=== PATIENT | male | born 1970 | race African-American/Black ===

== ENCOUNTER 2025-09-18 13:59 | Outpatient (OUT) | payer BC, SELFPAY ==
--- OUTSIDE RECORDS SUMMARY | 2025-07-08 11:00 | XMS_ITS ---
Author Organization [facility] vices Address [address] [place] [phone] Care Team Providers Care Career Development Facilitator Name Role Phone Polo Winters Unavailable [phone] REASON FOR VISIT Wellness Social History Sex Assigned At : Social History Observation Description Sex Assigned At Male Encounters Encounter Location Date Provider Diagnosis Main [address] [place] [address] [phone] 07/08/2025 Polo Winters Plan Of Treatment Next Appt Details Provider Name:Eliezer bernal, 09/23/2025 04:45:00 PM, [address] [place] [address], [phone], Provider Name:Polo Winters, 10/15/2025 12:45:00 PM, [address] [place] [address], [phone], Progress Notes * Ulysses LEWISDOB:1970 ( 54 yo M)Acc No.[id number]:07/08/2025 Patient:?Ulysses Lewis :?Polo JacobodDOB:1970???Age:54 Y???Sex:Male Date:07/08/2025Phone:[phone]:[address] [place] [id number] Subjective: * Chief Complaints: * W ellness Billing Information: * Procedure Codes: * Electronic signature of NÉSTOR Ramos on 09/18/2025 at 02:03 PM ESTSign off status: Pending * Provider: Lilliana Winters Date: 0 07/08/2025 Generated for Printing/Faxing/eTransmitting on:?09/18/2025 02:03 PM EST
--- OUTSIDE RECORDS SUMMARY | 2025-09-04 16:00 | XMS_ITS | Encounter Summary ---
Author Organization [facility] Address [facility] [id number] [address] [place] [address] Care Team Providers Care Tellers Supervisor Name Role Phone Unavailable Primary Care Provider Unavailabl e Reason for Referral * Consultation (Routine) - Pending ReviewSpecialtyDiagnoses / ProceduresReferred By ContactReferred To ContactWound Care Diagnoses Cellulitis, unspecified cellulitis site Talya Valencia APRN-CNP [address] [place] [phone] Phone: tel: fax: [facility] [address] [place] [address] Phone: tel: fax: Referral IDStatusReasonStart DateExpiration DateVisits RequestedVisits [id number] Review Specialty Services Required Reason for Visit * ReasonCommentsToe Pain Encounter Details DateTypeDepartmentCare Team (Latest Contact Info)Cgywllkmgfe26/19/2025 4:00 PM EST - 09/04/2025 5:15 PM ESTEmergency [facility] [address] [place] [address] Cellulitis, unspecified cellulitis site (Primary Dx) Discharge Disposition: Home Social History Tobacco UseTypesPacks/DayYears UsedDateSmoking Tobacco: NeverSmokeless Tobacco: NeverAlcohol UseStandard Drinks/WeekCommentsNo0 (1 standard drink = 0.6 oz pure alcohol)[facility] UtilitiesAnswerDate RecordedIn the past 12 months has the electric, gas, oil, or water company threatened to shut off services in your home?No 11/20/2024Overall Financial Resource Strain (CARDIA)AnswerDate RecordedHow hard is it for you to pay for the very basics like food, housing, medical care, and heating?Not hard at all05/28/2024HQ-2AnswerDate RecordedTotal Foaca553 PRAPARE - TransportationAnswerDate RecordedIn the past 12 months, has lack of transportation kept you from medical appointments or from getting medications? Yes11/20/2024In the past 12 months, has lack of transportation kept you from meetings, work, or from getting things needed for daily living?Yes11/20/2024 Housing InstabilityAnswerDate RecordedAre you worried or concerned that in the next two months you may not have stable housing that you own, rent or stay in as a part of a household?No11/20/2024hildcareAnswerDate RecordedChildcareUnknown 03/28/2019EmploymentAnswerDate MykmzmurAuuxclztwjGpkjdsc36/12/2019Hunger ScreeningAnswerDate RecordedWithin the past 12 months we worried whether our food would run out before we got money to buy more.Never True09/04/2025Within the past 12 months the food we bought just didn't last and we didn't have money to get more.Never True09/04/2025Purpose - LifeAnswerDate RecordedPurpose and direction in vrfsVpbsdjx54/11/2021ex and Gender InformationValueDate Recorded Sex Assigned at FqixbRicq89/11/2024 10:05 AM ESTLegal LofPauy9705/22/2015 11:27 AM EDTGender NkrkilcjPoyi12/11/2024 10:05 AM ESTSexual OrientationStraight 10/27/2023 10:05 AM ESTdocumented as of this encounter Last Filed Vital Signs Vital SignReadingTime TakenCommentsBlood Mdharqco964/9409/04/2025 5:04 PM EST Egocg610109/04/2025 5:04 PM OIHRfpajljjowd46.4 ??C (97.5 ??F)09/04/2025 4:10 PM ESTRespiratory Wqji137411/04/2024 5:04 PM ESTOxygen Webgcopsbl67%09/04/2025 5:04 PM ESTInhaled Oxygen Concentration--Xaasxw473.1 kg (311 lb)09/04/2025 4:07 PM GNXCdrbqh819.3 cm (5' 11 )09/04/2025 4:07 PM ESTBody Mass Index43.38111/04/2024 4:07 PM ESTdocumented in this encounter Discharge Instructions * Discharge Instructions* JADEN Willams - 09/04/2025 5:02 PM EST Thank you for choosing us for your medical care. We know you have a choice, and we appreciate you choosing us for your medical concerns! You may receive a survey from the hospital about your visit. We very much appreciate your comments and concerns. Please read all medication insert instructions and side effects when dispensed by the pharmacy. Every medication has side effects, and you may experience any of them. Please call the emergency room with any questions or concerns you have. Please call your doctor for outpatient follow up and recommendations. The emergency room cannot replace ongoing care, and it is important for your personal physician to evaluate you and monitor your health. Return to the ER for increased pain, fever > 101.5, vomiting twice, or any concern you deem emergent. Talya Valencia CNP * Attachments The following attachments cannot be sent through Care Everywhere. * Cellulitis (skin infection) in adults ??? ED discharge instructions (Marshallese) documented in this encounter Medications at Time of Discharge MedicationSigDispense QuantityRefillsLast FilledStart DateEnd Date acetaminophen (TYLENOL) 325 mg tablet Take 2 tablets (650 mg total) by mouth every 6 (six) hours as needed for fever, headaches or pain. 30 tablet 05/31/2023 dicyclomine (BENTYL) 20 mg tablet Take 1 tablet (20 mg total) by mouth in the morning and 1 tablet (20 mg total) before bedtime. 20 tablet 07/01/2025 empagliflozin (JARDIANCE) 10 mg tablet tablet Take 1 tablet (10 mg total) by mouth in the morning. insulin degludec (TRESIBA FLEXTOUCH U-100 SUBQ) Inject 30 Units under the skin nightly. insulin lispro (HumaLOG) 100 unit/mL insulin pen Inject 10 Units under the skin 3 (three) times a day with meals. 1 Box meclizine (ANTIVERT) 25 mg tablet Take 1 tablet (25 mg total) by mouth 3 (three) times a day as needed for dizziness. 30 tablet 11/22/2024 meclizine (ANTIVERT) 25 mg tablet Take 1 tablet (25 mg total) by mouth 3 (three) times a day as needed for dizziness. 20 tablet 08/09/2025 metFORMIN (GLUCOPHAGE) 1000 mg tablet Take 1 tablet (1,000 mg total) by mouth in the morning and 1 tablet (1,000 mg total) in the evening. Take with meals. ondansetron ODT (ZOFRAN ODT) 4 mg disintegrating tablet Dissolve 1 tablet (4 mg total) on tongue every 8 (eight) hours as needed for nausea for up to 10 doses. 10 tablet 07/01/2025 ondansetron ODT (ZOFRAN ODT) 4 mg disintegrating tablet Dissolve 1 tablet (4 mg total) on tongue every 8 (eight) hours as needed for nausea or vomiting. 20 tablet 08/09/2025 semaglutide (OZEMPIC) 0.25 mg or 0.5 mg(2 mg/1.5 mL) pen injector Inject 0.5 mg under the skin every 7 days. Pt takes on Mondays tirzepatide (MOUNJARO) 2.5 mg/0.5 mL pen injector Inject 2.5 mg under the skin every 7 days. CEPHalexin (KEFLEX) 500 mg capsule Take 1 capsule (500 mg total) by mouth 3 (three) times a day for 10 days. 30 capsule 511/documented as of this encounter ED Notes * JADEN Willams - 09/04/2025 4:17 PM EST Images from the original note were not included. [facility] Pt Name: Ulysses Lewis Birthdate: 1970 Chief Complaint: Chief Complaint Patient presents with Toe Pain History of Present Illness: Ulysses Lewis is a 54-year-old male that presents to ED with complaint of left 2nd toe pain. Patient states he woke up with his left 2nd toe being swollen, painful and with a blister on it. Patient states he is type 2 diabetic. Does not follow with Podiatry. States he has never had a wound to his feet before. History provided by: Patient automation specialist used: No Past Medical History: Past Medical History: Diagnosis Date Chest pain Diabetes mellitus type 2, controlled ([facility]) DM (diabetes mellitus) ([facility]) Hyperlipidemia Obesity Prostate enlargement Sleep apnea Past Surgical History: Past Surgical History: Procedure Laterality Date CARDIAC CATHETERIZATION 2017 heart cath CHOLECYSTECTOMY COLONOSCOPY N/A 08/23/2019 Performed by Sergey Maxwell MD at [facility] Family History: Family History Problem Relation Age of Onset Heart attack Mother Heart attack Father Social History: Social History Socioeconomic History Marital status: Tobacco Use Smoking status: Never Smokeless tobacco: Never Vaping Use Vaping status: Never Used Substance and Sexual Activity Alcohol use: No Drug use: No Sexual activity: Defer Other Topics Concern Caffeine Use No Social Drivers of Health Financial Resource Strain: Low Risk (05/28/2024) Overall Financial Resource Strain (CARDIA) Difficulty of Paying Living Expenses: Not hard at all Food Insecurity: No Food Insecurity (08/09/2025) Hunger Screening Food Insecurity - Worry: Never True Food Insecurity - Inability: Never True Transportation Needs: Unmet Transportation Needs (11/20/2024) PRAPARE - Transportation Lack of Transportation (Medical): Yes Lack of Transportation (Non-Medical): Yes Interpersonal Safety: Not At Risk (11/20/2024) Humiliation, Afraid, Rape, and Kick questionnaire Fear of Current or Ex-Partner: No Emotionally Abused: No Physically Abused: No Sexually Abused: No Housing Instability: Low Risk (11/20/2024) Housing Instability Housing Instability: No Review of Systems: Review of Systems Constitutional: Negative for chills and fever. HENT: Negative for ear pain. Eyes: Negative for pain. Respiratory: Negative for shortness of breath. Cardiovascular: Negative for chest pain/discomfort. Gastrointestinal: Negative for abdominal pain, diarrhea, nausea and vomiting. Genitourinary: Negative for flank pain. Musculoskeletal: Negative for back pain. Left 2nd toe pain and swelling Skin: Negative for rash. Neurological: Negative for headaches. Psychiatric/Behavioral: Negative for sleep disturbance and suicidal ideas. Physical Exam: ED Triage Vitals Temp Heart Rate Resp BP SpO2 09/04/25 1610 09/04/25 1607 09/04/25 1607 09/04/25 1607 09/04/25 1607 36.4 ??C (97.5 ??F) 90 16 (!) 160/98 97 % Temp Source Heart Rate Source Patient Position BP Location FiO2 (%) 09/04/25 1610 09/04/25 1607 09/04/25 1607 09/04/25 1607 -- Oral Monitor Sitting Left arm Vitals: 09/04/25 1607 09/04/25 1610 BP: (!) 160/98 Temp: 36.4 ??C (97.5 ??F) TempSrc: Oral Pulse: 90 Resp: 16 SpO2: 97% Height: 180.3 cm (5' 11 ) Weight: (!) 141.1 kg (311 lb) Physical Exam Vitals reviewed. HENT: Head: Normocephalic and atraumatic. Eyes: Conjunctiva/sclera: Conjunctivae normal. Musculoskeletal: General: Normal range of motion. Feet: Skin: General: Skin is warm and dry. Neurological: General: No focal deficit present. Mental Status: He is alert and oriented to person, place, and time. GCS: GCS eye subscore is 4. GCS verbal subscore is 5. GCS motor subscore is 6. Procedure: Procedures Re-evaluation: 1700 - x-ray negative for osteomyelitis. Patient treated for cellulitis and given 1st dose of Keflex and ED. given referral to outpatient wound care given patient is diabetic and has a high risk of losing the toe if the cellulitis is not treated properly. Encouraged to take antibiotics as prescribed and follow up with wound care. Patient is agreeable to this plan of care and discharge at this time. Medical Decision Making Plan of care - x-ray Amount and/or Complexity of Data Reviewed Radiology: ordered. Decision-making details documented in ED Course. Risk Prescription drug management. ED Course: Clinical Impressions as of 09/04/25 1703 Cellulitis, unspecified cellulitis site - left 2nd toe . ED Disposition ED Disposition Discharge Date/Time TueSep 04, 2025 5:02 PM Comment At the time of discharge, the plan has been discussed with the patient regarding the diagnosis and prognosis. All questions have been answered. Verbal discharge instructions were discussed with the patient. The patient has been advised to follow up w ith their Primary Care Provider within 1 week. The patient was also instructed to return to the ED if their symptoms change, worsen, new symptoms arise or if they have any additional concerns. Medications Prescribed this Visit Sig CEPHalexin (KEFLEX) 500 mg capsule Take 1 capsule (500 mg total) by mouth 3 (three) times a day for10 days. RADHA Supervision Only Supervising Physician was Dr. Deejay Herzog Please note that portions of this note were completed with a voice recognition program. Efforts were made to edit the dictations but occasionally words are mis-transcribed. JADEN Willams 09/04/25 1621 JADEN Willams 09/04/25 1703 * Yajaira Ro RN - 09/04/2025 4:06 PM EST Patient reports toe pain to the 2nd toe on his left foot. documented in this encounter Plan of Treatment DateTypeDepartmentCare Team (Latest Contact Info)Ywtcjshejwp32/10/2025 3:00 PM ESTOffice Visit [facility] [address] [place] [address] Talya Valencia APRN-CNP [address] [place] [address] Armida Hahn APRN-CNP [address] [place] [address] NameTypePriorityAssociated DiagnosesOrder ScheduleProMedica Physicians [facility] - [place], [place]Outpatient ReferralRoutine Cellulitis, unspecified cellulitis site 1 Occurrences starting 09/04/2025 until 09/04/2026documented as of this encounter Goals GoalPatient Goal TypeAssociated ProblemsRecent ProgressPatient-Stated?Author safe discharge to home Bozena Thomson RN Note: Evaluation of progress towards goal: safe transition from hospital to home with and family support. documented as of this encounter Procedures Procedure NamePriorityDate/TimeAssociated DiagnosisCommentsXR FOOT LT MIN 3 VWS STAT111/04/2024 4:31 PM EST documented in this encounter Results * X-ray foot left minimum 3 views (09/04/2025 4:31 PM EST)Anatomical Region LateralityModalityLower Extremities, MSK, FootLeftComputed RadiographySpecimen (Source)Anatomical Location / LateralityCollection Method / VolumeCollection TimeReceived Time09/04/2025 4:42 PM EST Narrative 09/04/2025 4:43 PM EST XR FOOT LT MIN 3 VWS: 09/04/2025 PROVIDED HISTORY: * ??54 years old Male * ??r/o osteomylitis COMPARISON: None. FINDINGS/IMPRESSION: 1. ??No acute fracture or dislocation. 2. ??Soft tissue swelling along the distal second digit, without evidence of underlying periosteal reaction or subcutaneous emphysema. 3. ??Degenerative changes throughout the foot. 4. ??Soft tissue swelling along the dorsum of the mid foot and forefoot. 5. ??If there remains concern for underlying occult infectious process, MRI may be of diagnostic value. Finalized by Ramón Milan MD on 09/04/2025 4:43 PM Procedure Note Ramón Milan MD - 09/04/2025 XR FOOT LT MIN 3 VWS: 09/04/2025 PROVIDED HISTORY: * 54 years old Male * r/o osteomylitis COMPARISON: None. FINDINGS/IMPRESSION: 1. No acute fracture or dislocation. 2. Soft tissue swelling along the distal second digit, without evidenceof underlying periosteal reaction or subcutaneous emphysema. 3. Degenerative changes throughout the foot. 4. Soft tissue swelling along the dorsum of the mid foot and forefoot. 5. If there remains concern for underlying occult infectious process, MRImay be of diagnostic value. Finalized by Ramón Milan MD on 09/04/2025 4:43 PM Authorizing ProviderResult TypeResult StatusAmber Erik SMOKING TOBACCO CUTTER OPERATOR-CNPIMG DIAGNOSTIC IMAGING ORDERABLESFinal Result documented in this encounter Visit Diagnoses Diagnosis Cellulitis, unspecified cellulitis site- Primary documented in this encounter Administered Medications Medication OrderMAR ActionAction DateDoseRateSite CEPHalexin (KEFLEX) capsule 500 mg 500 mg, oral, Once, On Tue09/04/25 at 1702, For 1 dose, Look-alike/sound-alike medication - verifyindication for use., Indication: Skin and soft tissue infection Given09/04/2025 5:05 PM CQO019 mgdocumented in this encounter Active and Recently Administered Medications Times are shown in EST.Medication Order/ CEPHalexin (KEFLEX) capsule 500 mg (COMPLETED) 500 mg, oral, Once, On Tue09/04/25 at 1702, For 1 dose, Look-alike/sound-alike medication - verifyindication for use., Indication: Skin and soft tissue infection * 1705 (Given - Provider: Yajaira Ro RN) documented in this encounter Additional Health Concerns AssessmentNoted TimePHQ-9 Depression Total Score: 4:47 PM EST documented as of this encounter
--- OUTSIDE RECORDS SUMMARY | 2025-09-11 14:20 | XMS_ITS | Encounter Summary ---
Author Organization [facility] [employer] [facility] tem Address [id number] [address] [place] [address] Care Team Providers Care Wheelabrator Operator Name Role Phone Unavailable Primary Care Provider Unavailabl e Reason for Referral * Consultation (Routine) - Pending ReviewSpecialtyDiagnoses / ProceduresReferred By ContactReferred To ContactPodiatry Diagnoses Diabetic ulcer of toe of left foot associated with type 2 diabetes mellitus, limited to breakdown of skin ([facility]) Pes planus of left foot Armida Hahn, BUILDINGS AND GROUNDS SUPERINTENDENT-WHOLESALE PARTS SALESPERSON [address] [place] [address] Phone: tel: fax: James Haynes, [facility] [address] [place] [address] Phone: tel: fax: Referral IDStatusReasonStart DateExpiration DateVisits RequestedVisits [id number] Review Specialty Services Required Electronically signed by Armida Hahn, BUILDINGS [employer] GROUNDS SUPERINTENDENT-WHOLESALE PARTS SALESPERSON at 09/11/2025 3:43 PM EST Reason for Visit * ReasonCommentsWound Check * Consultation (Routine) - Pending ReviewSpecialtyDiagnoses / ProceduresReferred By ContactReferred To ContactWound Care Diagnoses Cellulitis, unspecified cellulitis site Talya Valencia, [employer]ILD[employer] GROUNDS SUPERINTENDENT-WHOLESALE PARTS SALESPERSON [address] [place] [address] Phone: tel: fax: [facility] [address] [place] [address] Phone: tel: fax: Referral IDStatChan DateExpiration DateVisits RequestedVisits [id number] Review Specialty Services Required Encounter Details DateTypeDepartmentCare Team (Latest Contact Info)Gqgloppyzrg41/26/2025 2:20 PM ESTOffice Visit [facility] [address] [place] [address] Talya Valencia, BUILDINGS [employer] GROUNDS SUPERINTENDENT-WHOLESALE PARTS SALESPERSON [address] [place] [address] Armida Hahn, BUILDINGS [employer] GROUNDS SUPERINTENDENT-WHOLESALE PARTS SALESPERSON [address] [place] [address] Blister of second toe of left foot, initial encounter (Primary Dx); Diabetic ulcer of toe of left foot associated with type 2 diabetes mellitus, limited to breakdown of skin (CMS-HCC); Pes planus of left foot Social History Tobacco UseTypesPacks/DayYears UsedDateSmoking Tobacco: NeverSmokeless Tobacco: NeverAlcohol UseStandard Drinks/WeekCommentsNo0 (1 standard drink = 0.6 oz pure alcohol)[facility] UtilitiesAnswerDate RecordedIn the past 12 months has the [employer], [employer], oil, or water [employer] threatened to shut off services in your home?No 11/20/2024Overall Financial Resource Strain (CARDIA)AnswerDate RecordedHow hard is it for you to pay for the very basics like food, housing, medical care, and heating?Not hard at all4PHQ-2AnswerDate RecordedTotal [id number] PRAPARE - TransportationAnswerDate RecordedIn the past 12 [...] stay in as a part of a household?No5ChildcareAnswerDate RecordedChildcareUnknown 03/28/2019EmploymentAnswerDate GgeajhyfQnqxjiaoyaOzgolgx02/12/2019Hunger ScreeningAnswerDate RecordedWithin the past 12 months we worried whether our food would run out before we got money to buy more.Never True09/04/2025Within the past 12 months the food we bought just didn't last and we didn't have money to get more.Never True09/04/2025Purpose - LifeAnswerDate RecordedPurpose and direction in dynkQfxggqb96/11/2021ex and Gender InformationValueDate Recorded Sex Assigned at QitouHfvd91/11/2024 10:05 AM ESTLegal MrrMiea4105/22/2015 11:27 AM EDTGender MgxwowkrSeee46/11/2024 10:05 AM ESTSexual OrientationStraight 10/27/2023 10:05 AM ESTdocumented as of this encounter Last Filed Vital Signs Vital SignReadingTime TakenCommentsBlood Snxfmlwb916/9809/11/2025 3:00 PM EST Qroib573809/11/2025 3:00 PM KRAKczxnmfbyzr25.7 ??C (98 ??F)09/11/2025 3:00 PM EST Respiratory Grkg708911/11/2024 3:00 PM ESTOxygen Saturation--Inhaled Oxygen Concentration--Weight--Height--Body Mass Index--documented in this encounter Patient Instructions * Patient Instructions* Mireya Mckay RN - 09/11/2025 2:20 PM EST Wound Management Treatment Plan Wound Location(s): Left 2nd toe HOW TO CARE FOR YOUR WOUND The following should be performed Daily and as needed. STEP 1: Cleanse wound with Soap and water, rinse well, and pat dry. Irrigate or rinse wound with Saline (normal) and NO IRRIGATION REQUIRED. STEP 2: Soak wound with NO SOAK REQUIRED. STEP 3: Pack with NO PACKING REQUIRED STEP 4: Apply NO TOPICAL AGENT REQUIRED to wound bed. STEP 5: Cover wound with Gauze STEP 6: Secure dressings with Sock ACTIVITY: Avoid direct pressure to wound(s) at all times NUTRITION: High protein diet SKIN CARE: Moisturize all dry and intact skin daily SWELLING CONTROL: Elevate legs whenever sitting to level of heart/hips or higher. SUPPLIES: N/A Current Date - ITEMS TO FOLLOW UP ON: Referral sent to podiatry Length Width Depth Wound drainage Type Description none none none documented in this encounter Progress Notes * Armida Hahn, BUILDINGS AND GROUNDS SUPERINTENDENT-WHOLESALE PARTS SALESPERSON - 09/11/2025 2:20 PM EST Images from the original note were not included. Wound Care Progress Note Patient: Ulysses Lewis Date of : 1970 Chief Complaint:: toe blister Chief Complaint Patient presents with Wound Check PCP: PETRONA OLSEN PA-C Last PCP visit: unknown New patient evaluation SUBJECTIVE/HPI: Ulysses is a 54 y.o. male who presents to [facility] for evaluation of 1 blister/ ulcer(s) on the left dorsal second toe. The wound was first assessed in wound clinic on 09/11/2025. Current daily wound care includes: open to air Patient presented to the ER 09/04/2025 with complaints of left 2nd toe pain. Patient states he wokeup and his left 2nd toe was swollen, painful with a blister . Denies recent trauma. Patient does not follow with podiatry. States he has never had a wound on his feet. X-ray showing soft swelling of the left foot, no immediate evidence of osteomyelitis. Patient accompanied by: Self, ambulatory No medical sponge fisherman needed for assessment/examination. No sensitive areas were evaluated. Nutritional screen shows patient does not take increased amounts of protein in the diet. Patient denies fever, chills, sweats, or other signs of infection. Taking Keflex as prescribed in the emergency room Diabetic Blood Sugar: 160, reported. Lab Results Component Value Date HGBA1C 7.9 (H) 11/20/2024 HGBA1C 9.9 (H) 05/30/2023 Significant Findings or Change in Condition: New wound evaluation Contributing comorbid conditions: Diabetes and Hypertension Patient Active Problem List Diagnosis Sleep apnea Prostate enlargement DM (diabetes mellitus) [place] Chronic bilateral low back pain with bilateral sciatica Chest pain, unspecified type Class 3 severe obesity due to excess calories with body mass index (BMI) of 40.0 to 44.9 in adult ([facility] Other hyperlipidemia Hypomagnesemia Urinary incontinence Syncope, unspecified syncope type Hypertension Strain of thoracic spine Blister of second toe of left foot Diabetic ulcer of toe of left foot associated with type 2 diabetes mellitus, limited to breakdown of skin ([facility] Past Medical History: Diagnosis Date Chest pain Diabetes mellitus type 2, controlled ([facility] DM (diabetes mellitus) ([facility] Hyperlipidemia Obesity Prostate enlargement Sleep apnea Past Surgical History: Procedure Laterality Date CARDIAC CATHETERIZATION 2016 heart cath CHOLECYSTECTOMY COLONOSCOPY N/A 08/23/2019 Performed by Sergey Maxwell MD at [facility] Current Outpatient Medications Medication Sig Dispense Refill acetaminophen (TYLENOL) 325 mg tablet Take 2 tablets (650 mg total) by mouth every 6 (six) hours asneeded for fever, headaches or pain. 30 tablet 0 CEPHalexin (KEFLEX) 500 mg capsule Take 1 capsule (500 mg total) by mouth 3 (three) times a day for10 days. 30 capsule 0 dicyclomine (BENTYL) 20 mg tablet Take 1 tablet (20 mg total) by mouth in the morning and 1 tablet (20 mg total) before bedtime. 20 tablet 0 empagliflozin (JARDIANCE) 10 mg tablet tablet Take 1 tablet (10 mg total) by mouth in the morning. insulin degludec (TRESIBA FLEXTOUCH U-100 SUBQ) Inject 30 Units under the skin nightly. insulin lispro (HumaLOG) 100 unit/mL insulin pen Inject 10 Units under the skin 3 (three) times a day with meals. 1 Box 3 meclizine (ANTIVERT) 25 mg tablet Take 1 tablet (25 mg total) by mouth 3 (three) times a day as needed for dizziness. 30 tablet 0 meclizine (ANTIVERT) 25 mg tablet Take 1 tablet (25 mg total) by mouth 3 (three) times a day as needed for dizziness. 20 tablet 0 metFORMIN (GLUCOPHAGE) 1000 mg tablet Take 1 tablet (1,000 mg total) by mouth in the morning and 1 tablet (1,000 mg total) in the evening. Take with meals. ondansetron ODT (ZOFRAN ODT) 4 mg disintegrating tablet Dissolve 1 tablet (4 mg total) on tongue every 8 (eight) hours as needed for nausea for up to 10 doses. 10 tablet 0 ondansetron ODT (ZOFRAN ODT) 4 mg disintegrating tablet Dissolve 1 tablet (4 mg total) on tongue every 8 (eight) hours as needed for nausea or vomiting. 20 tablet 0 semaglutide (OZEMPIC) 0.25 mg or 0.5 mg(2 mg/1.5 mL) pen injector Inject 0.5 mg under the skin every 7 days. Pt takes on Mondays tirzepatide (MOUNJARO) 2.5 mg/0.5 mL pen injector Inject 2.5 mg under the skin every 7 days. No current facility-administered medications for this visit. No Known Allergies Social History Tobacco Use Smoking status: Never Smokeless tobacco: Never Substance Use Topics Alcohol use: No Recent imaging: X-ray foot left minimum 3 views Result Date: 09/04/2025 Narrative: XR FOOT LT MIN 3 VWS: 09/04/2025 [...] Ramón Milan MD on 09/04/2025 4:43 PM Laboratory Results Lab Results Component Value Date WBC 7.6 08/09/2025 HGB 14.3 08/09/2025 HCT 41.2 08/09/2025 MCV 84 08/09/2025 PLT 294 08/09/2025 Lab Results Component Value Date ALBUMIN 3.2 11/22/2024 The following portions of the patient's history were reviewed and updated as appropriate: allergies, current medications, past family history, past medical history, past social history, past surgicalhistory, problem list, and medication reconciliation was completed including current medication andpost discharge medication. Review of Systems Constitutional: Negative. Negative for activity change, appetite change and fever. HENT: Negative. Negative for trouble swallowing. Respiratory: Positive for apnea (ERIBERTO). Negative for cough, shortness of breath and wheezing. Cardiovascular: Positive for chest pain. Negative for palpitations and leg swelling. Gastrointestinal: Negative. Negative for abdominal distention, nausea and vomiting. Genitourinary: Negative. Negative for dysuria, frequency and urgency. Musculoskeletal: Positive for back pain. Negative for neck stiffness. Skin: Positive for color change and wound. Neurological: Positive for light-headedness. Negative for numbness and headaches. OBJECTIVE: Vitals: 09/11/25 1500 BP: (!) 160/98 Pulse: 78 Resp: 16 Temp: 36.7 ??C (98 ??F) BMI: Estimated body mass index is 43.38 kg/m?? as calculated from the following: Height as of 09/04/25: 180.3 cm (5' 11 ). Weight as of 09/04/25: 141.1 kg (311 lb). Obesity Class III (>40) Pain: Denies Wound Focused Physical Assessment: Physical Exam Vitals and nursing note reviewed. Constitutional: Appearance: He is well-developed. HENT: Head: Normocephalic and atraumatic. Cardiovascular: Rate and Rhythm: Normal rate and regular rhythm. Pulses: Dorsalis pedis pulses are detected w/ doppler on the left side. Posterior tibial pulses are detected w/ doppler on the left side. Heart sounds: Normal heart sounds. No murmur heard. No gallop. Pulmonary: Effort: Pulmonary effort is normal. Breath sounds: Normal breath sounds. No wheezing. Musculoskeletal: General: Normal range of motion. Cervical back: Normal range of motion. Left foot: Deformity (pes planus) present. Feet: Left foot: Skin integrity: Blister, erythema and dry skin present. Skin: General: Skin is warm and dry. Neurological: Mental Status: He is alert and oriented to person, place, and time. Vascular: Left Lower Extremity Left lower extremity pulses DP: detected w/ doppler Doppler findings: strong PT: detected w/ doppler Doppler findings: strong Left lower extremity edema: none Left Lower Extremity Skin Integrity: Positive for blister, erythema and dry skin. Vascular Assessment: LLE Color: [place] LLE Temperature/Moisture: Warm L Posterior Tibial Pulse: Moderate L Dorsalis Pedis/Pedal Pulse: Moderate Sensation: Present Calf Measurement: 40 cm Wound Assessment: Blood blister of left second toe Healing Status: Wound stable Procedures none Dressing: The wound was cleansed with Soap and water, rinse well, and pat dry and a dry dressing was placed in wound clinic. Offloading: Continue offloading with: avoid direct pressure to area, patient given Darco surgical shoe ASSESSMENT/PLAN/EDUCATION: 1. Blister of second toe of left foot, initial encounter 2. Diabetic ulcer of toe of left foot associated with type 2 diabetes mellitus, limited to breakdown of skin ([facility]) Keep blister covered Continue to wear surgical shoe as to avoid blister from rubbing Referral to podiatry, patient is a diabetic, needs to establish for appropriate foot care Discussion regarding appropriate foot wear, patient stands up to 8 hours at work, is in need of properly fitting shoes. Patient instructed in wound care to current wounds present as above. Follow up: Provider: Return to the wound clinic in 2 weeks for your provider to evaluate the need for further skilled services and consider additional treatment(s). -We will continue to monitor closely for wound healing and to avoid any complications or infection. Nurse Visit: Not needed Communication sent to Home Health Agency/Skilled Care Facility: NA Treatment Goals Short Term: Engagement in therapy and care. Operations Systems Specialist: Wound closure Education: -The patient/family/caregiver was taught to watch for S/S of infection (redness, pus, pain, increased swelling, chills or fever) and to call the wound care clinic or PCP if such occurs. -The patient/family/caregiver was educated on offloading the area by avoiding direct pressure to the wound bed. -The patient/family/caregiver was advised to eat a high protein diet. -Education, as well as the pathophysiology of the disease process, was provided on infection, edema, necrotic tissue and its relationship to nonhealing wounds. -Education was provided on treatment plan. -Patient/family/caregiver verbalized understanding. Instructed to RETURN SOONER OR PROCEED TO EMERGENCY ROOM if there are any concerns or symptoms worsen. Total time spent was 25 minutes: Preparing to see the patient (e.g., review of tests) Obtaining and/or reviewing separately obtained history Performing a medically appropriate examination and/or evaluation Counseling and educating the patient/family/caregiver Ordering medications, tests, or procedures Referring and communicating with other health animal caretaker (not separately reported) Documenting clinical information in the electronic or other health record JADEN JEFFRIES 09/11/25 3:29 PM [facility] JADEN Jeffries 09/11/25 1543 documented in this encounter Plan of Treatment DateTypeDepartmentCare Team (Latest Contact Info)Fdswijdnvyr76/10/2025 3:00 PM ESTOffice Visit [facility] [address] [place] [address] Talya Valencia APRN-CNP [address] [place] [address] Armida Hahn APRN-CNP [address] [place] [address] NameTypePriorityAssociated DiagnosesOrder ScheduleAmbulatory referral to Podiatry (Non-[facility])Outpatient ReferralRoutine Diabetic ulcer of toe of left foot associated with type 2 diabetes mellitus, limited to breakdown of skin ([facility]) Pes planus of left foot 1 Occurrences starting 09/11/2025 until 09/11/2026documented as of this encounter Goals GoalPatient Goal TypeAssociated ProblemsRecent ProgressPatient-Stated?Author safe discharge to home Bozena Thomson, CHANTAL Note: Evaluation of progress towards goal: safe transition from hospital to home with and family support. documented as of this encounter Visit Diagnoses Diagnosis Blister of second toe of left foot, initial encounter- Primary Diabetic ulcer of toe of left foot associated with type 2 diabetes mellitus, limited to breakdown of skin (CMS-HCC) Pes planus of left foot documented in this encounter Additional Health Concerns AssessmentNoted TimePHQ-9 Depression Total Score: 4:47 PM EST documented as of this encounter
--- OUTSIDE RECORDS SUMMARY | 2025-09-17 14:13 | XMS_ITS | Encounter Summary ---
Author Organization [facility] tem Address [id number] [address] [place] [address] Care Team Providers Care Carpenter Ship Name Role Phone Tong Roman PA-C Primary Care Provider [phone] Reason for Visit * ReasonCommentsToe PainPt reports pain to 2nd toe on left foot. Pt reports following up with wound care from previous visit and they referred him to podiatry where he hasn't been able to get into. Pt is more concerned withtoe due to it being black. Pt does have hx of diabetes. Encounter Details DateTypeDepartmentCare Team (Latest Contact Info)Xvaushmzlhs35/02/2025 2:13 PM EST - 09/17/2025 4:19 PM Felicia [facility] [address] [place] [id number] Susie Schmid MD [address] [place] [address] Black toe ([facility]) (Primary Dx) Discharge Disposition: Home Social History Tobacco UseTypesPacks/DayYears UsedDateSmoking Tobacco: NeverSmokeless Tobacco: NeverAlcohol UseStandard Drinks/WeekCommentsNo0 (1 standard drink = 0.6 oz pure alcohol)[facility] UtilitiesAnswerDate RecordedIn the past 12 months has the electric, gas, oil, or water company threatened to shut off services in your home?No 11/20/2024Overall Financial Resource Strain (CARDIA)AnswerDate RecordedHow hard is it for you to pay for the very basics like food, housing, medical care, and heating?Not hard at all4PHQ-2AnswerDate RecordedTotal [id number] PRAPARE - TransportationAnswerDate RecordedIn the past 12 [...] a part of a household?No5ChildcareAnswerDate RecordedChildcareUnknown 03/28/2019EmploymentAnswerDate TmiymexmAjzlrbyqdwMukhrsv66/12/2019Hunger ScreeningAnswerDate RecordedWithin the past 12 months we worried whether our food would run out before we got money to buy more.Never True09/17/2025Within the past 12 months the food we bought just didn't last and we didn't have money to get more.Never True09/17/2025Purpose - LifeAnswerDate RecordedPurpose and direction in wsmeRhajtxa30/11/2021ex and Gender InformationValueDate Recorded Sex Assigned at JzeknKuzy23/11/2024 10:05 AM ESTLegal CcuJuyr7805/22/2015 11:27 AM EDTGender AlbxmhnqHweg77/11/2024 10:05 AM ESTSexual OrientationStraight 10/27/2023 10:05 AM ESTdocumented as of this encounter Last Filed Vital Signs Vital SignReadingTime TakenCommentsBlood Kdlyvssl196/8609/17/2025 4:19 PM EST Xwqoj986209/17/2025 4:19 PM WEBUfwhlyljekq87.6 ??C (97.9 ??F)09/17/2025 2:18 PM ESTRespiratory Imzc2707 4:19 PM ESTOxygen Ntmhezhdcv61%09/17/2025 4:19 PM ESTInhaled Oxygen Concentration--Iqyitc229.9 kg (315 lb)09/17/2025 2:18 PM ESDJtljvi893.3 cm (5' 11 )09/17/2025 2:18 PM ESTBody Mass Index43.9309/17/2025 2:18 PM ESTdocumented in this encounter Discharge Instructions * Discharge Instructions* Susie Schmid MD - 09/17/2025 4:00 PM EST Thank you for choosing us for your medical care. We know you have a choice, and we appreciate you choosing us for your medical concerns! You may receive a survey from the hospital about your visit. We very much appreciate your comments and concerns. Please read the attached papers for more information. Please understand that at this time there is no evidence for a more serious underlying process thatrequires emergent surgical intervention or hospital admission, but that early in the process of an illness or injury, an emergency department evaluation can be falsely reassuring. It is impossible to address all aspects of your healthcare in one visit and emergency medical evaluations do not take the place of regular medical care. Your diagnosis today is a provisional one based on information available to the Emergency Physician. The diagnosis may change as more information becomes available to your private physician. Please call your doctor for outpatient follow up on your blood pressure and either Podiatry or Orthopedics for follow-up for your toe in the next 1-2 days. The emergency room cannot replace ongoing care, and it is important for your personal physician to evaluate you and monitor your health. Returnto the ER for any new, worsening or concerning symptoms as we discussed. Currently there are no signs of infection but if you develop redness, streaking that travels up your foot, drainage or fever, start feeling ill or any other signs of infection you should be seen right away. * Attachments The following attachments cannot be sent through Care Everywhere. * Gangrene Discharge Instructions (Faroese) documented in this encounter Medications at Time [...] 2.5 mg under the skin every 7 days.documented as of this encounter Plan of Treatment DateTypeDepartmentCare Team (Latest Contact Info)Qucctegfshh98/10/2025 3:00 PM ESTOffice Visit [facility] [address] [place] [address] Talya Valencia, RAISED PRINTER-GOODS LAYER [address] [place] [address] Armida Hahn, RAISED PRINTER-GOODS LAYER [address] [place] [address] documented as of this encounter Goals GoalPatient Goal TypeAssociated ProblemsRecent ProgressPatient-Stated?Author safe discharge to home Bozena Thomson RN Note: Evaluation of progress towards goal: safe transition from hospital to home with and family support. documented as of this encounter Procedures Procedure NamePriorityDate/TimeAssociated DiagnosisCommentsXR TOE LT 2ND DIGIT MIN 2 VTBVPHF75/02/2025 2:53 PM EST documented in this encounter Results * X-ray toe left 2nd digit minimum 2 views (09/17/2025 2:53 PM EST)Anatomical RegionLateralityModalityLower Extremities, MSK, ToesLeftComputed Radiography Specimen (Source)Anatomical Location / LateralityCollection Method / Volume Collection TimeReceived Time09/17/2025 2:54 PM EST Narrative 09/17/2025 2:56 PM EST Left second toe 3 view COMPARISON: 09/04/2025 HISTORY: Necrotic toe, left second digit. Frontal radiograph of the left foot and oblique and lateral views of the left second toe obtained. IMPRESSION: Soft tissue swelling and irregularity of the distal second toe. No associated bone erosion or periosteal reaction to suggest osteomyelitis. No fracture or dislocation. Finalized by Neftali Harding MD on 09/17/2025 2:56 PM Procedure Note Neftali Harding MD - 09/17/2025 Left second toe 3 view COMPARISON: 09/04/2025 HISTORY: Necrotic toe, left second digit. Frontal radiograph of the left foot and oblique and lateral views of theleft second toe obtained. IMPRESSION: Soft tissue swelling and irregularity of the distal second toe. Noassociated bone erosion or periosteal reaction to suggest osteomyelitis.No fracture or dislocation. Finalized by Neftali Harding MD on 09/17/2025 2:56 PM Authorizing ProviderResult TypeResult StatusSumary Schmid MDIMDahiana DIAGNOSTIC IMAGING ORDERABLESFinal Result documented in this encounter Visit Diagnoses Diagnosis Black toe (CMS-HCC)- Primary documented in this encounter Additional Health Concerns AssessmentNoted TimePHQ-9 Depression Total Score: 4:47 PM EST documented as of this encounter Care Teams Team MemberRelationshipSpecialtyStart DateEnd Date Tong Roman PA-C PCP - GeneralPhysician Uthwtnfcr15/2/25documented as of this encounter
--- OUTSIDE RECORDS SUMMARY | 2025-09-18 14:03 | XMS_ITS | Encounter Summary ---
Author Organization [facility] Address [address] [place] [address] Care Team Providers Care Childhood Development Teacher Name Role Phone Unallocated, Noms Provider Primary Care [facility] Reason for Visit * ReasonOnset DateCommentsAppointment Rgxdevg6209/05/2025 Encounter Details DateTypeDepartmentCare Team (Latest Contact Info)Pvjfyenmwsm50/20/2025Telephone [facility] [address] [facility] [address] [place] [phone] Wilfredo Aparicio DPM [address] [facility] [address] [place] [address] Appointment Request Social History Tobacco UseTypesPacks/DayYears UsedDateSmoking Tobacco: NeverSmokeless Tobacco: NeverAlcohol UseStandard Drinks/WeekCommentsYes0 (1 standard drink = 0.6 oz pure alcohol)caffeine: noneSex and Gender InformationValueDate RecordedSex Assigned at RvetlTvai97/15/2024 10:35 AM ESTLegal AtfOfyw4112/29/2022 7:34 PM EDTGender KxexwnmzLijw16/15/2024 10:35 AM ESTSexual OrientationNot on filedocumented as of this encounter Miscellaneous Notes * Telephone Encounter - Kvng Persongomery - 09/05/2025 12:50 PM EST Called patient but he message box is full so I can't leave a message. If the patient calls again I will let him know. * Telephone Encounter - RT. Mendoza Medina - 09/05/2025 11:[address] Aparicio cannot take patient on. Please call him and let him know to contact another Automotive Service Professional. * Telephone Encounter - Kvng Villalpando - 09/05/2025 9:15 AM EST Patient called stating that he has a blister on second toe and wanted to get into see Dr. Aparicio but he has canceled a total of 8 appointments with him. He was last seen on 11-16-23 and has been told by other offices that Dr. Aparicio will not see him. He has not paid for past due balances. Podiatry Comments: 06-20-2025 - needs to pay on past due balance before scheduling another appt. 11/16/23 [facility] PT is not to no show or cancel his next appt; see TEL named mulcharissaple cancellations documented in this encounter Plan of Treatment Not on file documented as of this encounter Visit Diagnoses Not on filedocumented in this encounter Care Teams Team MemberRelationshipSpecialtyStart DateEnd Date Unallocated, Noms Provider[place] [address] PCP - GeneralFamily Medicine11/16/23documented as of this encounter
--- OUTSIDE RECORDS SUMMARY | 2025-09-18 14:03 | XMS_ITS | Clinical Summary ---
Author Organization [facility] Address [address] [place] [address] Care Team Providers Care Hims Coder Name Role Phone Unallocated, Noms Provider Primary Care Provi cristobal Allergies No known active allergies Medications MedicationSigDispense QuantityRefillsLast FilledStart DateEnd DateStatus tamsulosin (Flomax) 0.4 MG 24 hr capsule Take 0.4 mg by mouth in the morning.Active semaglutide (Ozempic, 0.25 or 0.5 MG/DOSE,) 2 MG/1.5ML solution pen-injector Inject 0.5 mg under the skin once a weekActive metFORMIN (Glucophage) 1000 MG tablet Take 1,000 mg by mouth in the morning and 1,000 mg in the evening. Take with meals.Active BD Pen Needle Claudia 2nd Gen 32G X 4 MM misc Inject under the skin if ufyavk9607/12/2023ctive insulin lispro (HumaLOG) 100 UNIT/ML injection Inject under the skin 3 (three) times a day with meals09/12/2023ctive Tresiba FlexTouch 100 UNIT/ML injection Inject under the skin at ajohoue0910/11/2023ctive glucose blood (True Metrix Blood Glucose Test) test strip TEST ONCE DAILY AND PRN In Vitro for 50Active Tylenol 325 MG tablet Take 650 mg by mouth if dktddq6305/31/2023ctive Active Problems ProblemNoted DateDiagnosed DateStrain of thoracic spine06/05/2025Type 2 diabetes mellitus with neurological owmajhbuundpf91/31/2024eripheral vascular disease 11/16/2023 Encounters DateTypeDepartmentCare KsxxBcedupeavge56/20/2025Telephone [facility] [address] [place] [address] Wilfredo Aparicio, DPBairon Appointment Zobsbom1606/20/2025Telephone [facility] [address] [place] [phone] Mamta Teixeira APPOINTMENTfrom Last 3 Months Family History Medical HistoryRelationNameCommentsDiabetesFatherHeart diseaseFatherHypertension FatherDiabetesMotherHeart diseaseMotherHypertensionMotherRelationNameStatus CommentsFatherDeceasedMotherDeceased Social History Tobacco UseTypesPacks/DayYears UsedDateSmoking Tobacco: NeverSmokeless Tobacco: Never Tobacco Cessation:Counseling Given: Not Answered Alcohol UseStandard Drinks/WeekCommentsYes0 (1 standard drink = 0.6 oz pure alcohol)caffeine: noneSex and Gender InformationValueDate RecordedSex Assigned at GmdoxOlua94/15/2024 10:35 AM ESTLegal LhdXhjp2412/29/2022 7:34 PM EDTGender EaongvfwYnws82/15/2024 10:35 AM ESTSexual OrientationNot on file Last Filed Vital Signs Vital SignReadingTime TakenCommentsBlood Cvhginey766/85011/16/2023 10:43 AM EST Lylqy675611/16/2023 10:43 AM JZIPqvdvrudcwh61.9 ??C (98.4 ??F)11/16/2023 10:43 AM ESTRespiratory Rate--Oxygen Saturation--Inhaled Oxygen Concentration--Prmgcp316 kg (316 lb)05/10/2022 12:00 PM XLWNpbaaz684.8 cm (5' 10 )05/10/2022 12:00 PM EDT Body Mass Index45.34005/10/2022 12:00 PM EDT Plan of Treatment Health MaintenanceDue DateLast DoneCommentsCT Fsiiltnchife1968FIT-DNA 1968FIT1968FOBT1968 5352Navxkudloxbcb1968Diabetes: Retinopathy Zzvfxqwhn28/23/1978Pneumococcal Vaccine: Pediatrics (0 to 5 Years) and At-Risk Patients (6 to 64 Years) (1 of 2 - PCV)1987Diabetes: Urine Protein Euajnxbes36/09/502751/06/2024, 10/25/2023, 11/19/2019Diabetes: Hemoglobin A1C/01/2025, 12/18/2021, 07/04/2018, Additional history existsCOVID-19 Vaccine ( season)/05/2021, 01/31/2021 Influenza Vaccine (#1), 08/16/20141369Bdyympvywng13/07/2029 08/23/2019Colorectal Cancer Rekqbijuz39/07/2029 Procedures Procedure NamePriorityDate/TimeAssociated DiagnosisCommentsCOLONOSCOPYRoutine 08/23/2019 12:00 PM EST from Last 3 Months or Most Recently Relevant to Health Maintenance Results * Colonoscopy (08/23/2019 12:00 PM EST)Anatomical RegionLateralityModality EndoscopySpecimen (Source)Anatomical Location / LateralityCollection Method / VolumeCollection TimeReceived Time08/23/2019 12:00 PM EST Narrative 08/23/2019 12:00 PM EST PERFORMED AT [facility] LOCATION:[id number] Procedure Note CONVERSION, GENERIC - 03/02/2023 PERFORMED AT [facility] LOCATION:[id number] Authorizing ProviderResult TypeResult StatusSergey Maxwell MDENDOSCOPY PROCEDURE ORDERABLESFinal Result from Last 3 Months or Most Recently Relevant to Health Maintenance Insurance Care Teams Team MemberRelationshipSpecialtyStart DateEnd Date Unallocated, Noms Provider, [address] [place] [address] PCP - GeneralFaflly Medicine11/16/23
--- OUTSIDE RECORDS SUMMARY | 2025-09-18 14:03 | XMS_ITS | Clinical Summary ---
Author Organization I and love and you tem Address [id number] [address] [place] [address] Care Team Providers Care Hogshead Filler Name Role Phone Tong Roman PA-C Primary Care Provider Allergies No known active allergies Medications MedicationSigDispense QuantityRefillsLast FilledStart DateEnd DateStatus metFORMIN (GLUCOPHAGE) 1000 mg tablet Take 1 tablet (1,000 mg total) by mouth in the morning and 1 tablet (1,000 mg total) in the evening. Take with meals.Active insulin lispro (HumaLOG) 100 unit/mL insulin pen Inject 10 Units under the skin 3 (three) times a day with meals. 1 Box Active semaglutide (OZEMPIC) 0.25 mg or 0.5 mg(2 mg/1.5 mL) pen injector Inject 0.5 mg under the skin every 7 days. Pt takes on MondaysActive insulin degludec (TRESIBA FLEXTOUCH U-100 SUBQ) Inject 30 Units under the skin nightly.Active acetaminophen (TYLENOL) 325 mg tablet Take 2 tablets (650 mg total) by mouth every 6 (six) hours as needed for fever, headaches or pain. 30 tablet 3Active empagliflozin (JARDIANCE) 10 mg tablet tablet Take 1 tablet (10 mg total) by mouth in the morning.Active meclizine (ANTIVERT) 25 mg tablet Take 1 tablet (25 mg total) by mouth 3 (three) times a day as needed for dizziness. 30 tablet 5Active dicyclomine (BENTYL) 20 mg tablet Take 1 tablet (20 mg total) by mouth in the morning and 1 tablet (20 mg total) before bedtime. 20 tablet 5Active ondansetron ODT (ZOFRAN ODT) 4 mg disintegrating tablet Dissolve 1 tablet (4 mg total) on tongue every 8 (eight) hours as needed for nausea for up to 10 doses. 10 tablet 5Active tirzepatide (MOUNJARO) 2.5 mg/0.5 mL pen injector Inject 2.5 mg under the skin every 7 days.Active meclizine (ANTIVERT) 25 mg tablet Take 1 tablet (25 mg total) by mouth 3 (three) times a day as needed for dizziness. 20 tablet 5Active ondansetron ODT (ZOFRAN ODT) 4 mg disintegrating tablet Dissolve 1 tablet (4 mg total) on tongue every 8 (eight) hours as needed for nausea or vomiting. 20 tablet 5Active CEPHalexin (KEFLEX) 500 mg capsule Take 1 capsule (500 mg total) by mouth 3 (three) times a day for 10 days. 30 capsule 5111/14/2024Expired Active Problems ProblemNoted DateDiagnosed CbxyRgvwwvpedzbr08/26/2025lister of second toe of left foot09/11/2025Diabetic ulcer of toe of left foot associated with type 2 diabetes mellitus, limited to breakdown of skin09/11/2025Strain of thoracic spine06/05/2025Syncope, unspecified syncope type11/19/2024Urinary incontinence 11/09/2023 Overview (11/09/2023): 11/09/23: Issues with incontinence that began after a back injury. Scheduled for MRI later this week. PVR 16. Not interested in further diagnostics or treatments at this time Assessment & Plan (11/09/2023 2:04 PM EST): We discussed cystoscopy/urodynamics testing. We also talked about a trial of an anticholinergic or a beta 3 agonist. He wants to wait and see what comes from his MRI and continued PT. He will call sooner if any problems. He is due for PSA testing. He will get that done here to his next appointment.He has been referred to Dr. Clarke. Class 3 severe obesity due to excess calories with body mass index (BMI) of 40.0 to 44.9 in adult05/30/2023Other mylieblmvtnkqm89/14/5295Iktnthukslgdve53/14/2023 Chest pain, unspecified type05/29/2023hronic bilateral low back pain with bilateral laebotqo21/23/2021leep apnea02/16/2018Prostate enlargementDM (diabetes mellitus) Resolved Problems ProblemNoted DateDiagnosed DateResolved DateBilateral hearing loss02/07/2018 02/16/2018Acute aujgicexr09 Encounters DateTypeDepartmentCare EjvaDmycmrkwpvu53/02/2025 2:13 PM EST - 09/17/2025 4:19 PM [facility] [address] [place] [address] Susie Schmid MD Black toe ([facility]) (Primary Dx) Discharge Disposition: Home09/17/20256081Rdfvxu38/26/2025 2:20 PM ESTOffice Visit [facility] [address] [place] [address] Talya Valencia, RUG SIZER-SHOE REPAIRER HELPER Armida Hahn RUG SIZER-SHOE REPAIRER HELPER Blister of second toe of left foot, initial encounter (Primary Dx); Diabetic ulcer of toe of left foot associated with type 2 diabetes mellitus, limited to breakdown of skin ([facility]); Pes planus of left foot09/11/20255311Eteesf65/19/2025 4:00 PM EST - 09/04/2025 5:15 PM [facility] [address] [place] [id number] Cellulitis, unspecified cellulitis site (Primary Dx) Discharge Disposition: Home09/04/20254710Jjnjfv96/24/2025 9:42 AM EDT - 08/09/2025 12:54 [facility] [address] [facility] [address] Ti Aguilar MD Dizziness (Primary Dx) Discharge Disposition: Home08/09/20250172Kpkwpr48/15/2025 12:02 PM EDT - 07/01/2025 2:44 PM EDTEmergency [facility] [address] [facility] [place] [address] Jairo Torres MD Left lower quadrant abdominal pain (Primary Dx) Discharge Disposition: Home07/01/2025Travelfrom Last 3 Months Immunizations ImmunizationAdministration DatesNext PxqNbaq8001/14/2022 Family History Medical HistoryRelationNameCommentsHeart attackFatherHeart attackMotherRelation NameStatusCommentsFatherDeceasedMotherDeceased Social History Tobacco UseTypesPacks/DayYears UsedDateSmoking Tobacco: NeverSmokeless Tobacco: NeverAlcohol UseStandard Drinks/WeekCommentsNo0 (1 standard drink = 0.6 oz pure alcohol)[facility] UtilitiesAnswerDate RecordedIn the past 12 months has the electric, gas, oil, or water company threatened to shut off services in your home?No 11/20/2024Overall Financial Resource Strain (CARDIA)AnswerDate RecordedHow hard is it for you to pay for the very basics like food, housing, medical care, and heating?Not hard at all4PHQ-2AnswerDate RecordedTotal Erurh480 PRAPARE - TransportationAnswerDate RecordedIn the past 12 [...] a part of a household?No5ChildcareAnswerDate RecordedChildcareUnknown 03/28/2019EmploymentAnswerDate RvztlehrYjchgqfwxeKjcjraw48/12/2019Hunger ScreeningAnswerDate RecordedWithin the past 12 months we worried whether our food would run out before we got money to buy more.Never True09/17/2025Within the past 12 months the food we bought just didn't last and we didn't have money to get more.Never True09/17/2025Purpose - LifeAnswerDate RecordedPurpose and direction in clxnOhoqfpg65/11/2021ex and Gender InformationValueDate Recorded Sex Assigned at GcmycEhij19/11/2024 10:05 AM ESTLegal IfdSicz7605/22/2015 11:27 AM EDTGender XvsjctfwUstu27/11/2024 10:05 AM ESTSexual OrientationStraight 10/27/2023 10:05 AM EST Last Filed Vital Signs Vital SignReadingTime TakenCommentsBlood Afeklinc323/8609/17/2025 4:19 PM EST Qwhvg343909/17/2025 4:19 PM VIRNrrxghzbvus86.6 ??C (97.9 ??F)09/17/2025 2:18 PM ESTRespiratory Zrbq9816 4:19 PM ESTOxygen Azvbtmjjth13%09/17/2025 4:19 PM ESTInhaled Oxygen Concentration--Efwzuw672.9 kg (315 lb)09/17/2025 2:18 PM QAGYtwmjo459.3 cm (5' 11 )09/17/2025 2:18 PM ESTBody Mass Index43.9309/17/2025 2:18 PM EST Plan of Treatment DateTypeDepartmentCare Team (Latest Contact Info)Artoquyrzqp01/10/2025 3:00 PM ESTOffice Visit [facility] [address] [place] [address] Talya Valencia, RUG SIZER-SHOE REPAIRER HELPER [address] [place] [address] Armida Hahn, RUG SIZER-SHOE REPAIRER HELPER [address] [place] [address] Health MaintenanceDue DateLast DoneCommentsDiabetic Ophthalmology Exam1968 Statin Use: Jzoktefv1968Depression Yfudnweyc80/23/1980Adult BMI Follow Up Plan1986Diabetic Foot Exam1986Zoster (Shingles) Vaccine (1 of 2) 2018COVID-19 Vaccine (3 - season)/05/2021, 01/31/2021 Influenza Qjnidzn27, 08/16/2014dult BMI Ovvnaajnt68/02/2026 09/17/2025Tobacco Faqdqfjsz54DTaP,Tdap and Td Vaccines (2 - Td or Tdap) Goals GoalPatient Goal TypeAssociated ProblemsRecent ProgressPatient-Stated?Author safe discharge to home Bozena Thomson RN Note: Evaluation of progress towards goal: safe transition from hospital to home with and family support. Medical Devices Not on file Procedures Procedure NamePriorityDate/TimeAssociated DiagnosisCommentsXR TOE LT 2ND DIGIT MIN 2 UCFXXZT22/02/2025 2:53 PM EST XR FOOT LT MIN 3 NECMSEU5609/04/2025 4:31 PM EST TROP I, HIGH SENSITIVITY 1 TUFTNCIP63/24/2025 11:18 AM EDT XR CHEST 1 ONJWAD6708/09/2025 10:18 AM EDT EXTRA TUBES BLUE GQYFmiossw02/24/2025 10:12 AM EDT EXTRA ZWHDRScijmjz06/24/2025 10:12 AM EDT TROPONIN I, HIGH SENSITIVITY 0 AARMCTET82/24/2025 10:12 AM EDT TROPONIN I, HIGH SENSITIVITY 0 PWJUMUWK24/24/2025 10:12 AM EDT BASIC METABOLIC UWVCMITLU44/24/2025 10:12 AM EDT CBC WITH AUTO FQQFGTXGZQRASEMZ76/24/2025 10:12 AM EDT ECG 12-JPFYIDKR29/24/2025 10:04 AM EDTBEDSIDE XIRXOJBUsfqwap35/24/2025 9:46 AM EDT BASIC METABOLIC QXWHPHWDQ77/15/2025 1:19 PM EDT CBC WITH AUTO ZORYKSNUOHRRKAEN20/15/2025 1:19 PM EDT EXTRA TUBES BLUE XRHFnrelhi97/15/2025 1:18 PM EDT EXTRA SBTQYEqwpusf01/15/2025 1:[address] ABDOMEN AND PELVIS WO FYROVTQM56/15/2025 1:11 PM EDT POCT NURSING URINE MACROSCOPIC HKEcbmoqp25/15/2025 1:08 PM EDT ER EXTRA URINE IDHEZWFKBW80/15/2025 1:05 PM EDT ER EXTRA URINE VXWFTXIRPQD22/15/2025 1:05 PM EDT ER EXTRA VZHTLOKIL36/15/2025 1:05 PM EDT from Last 3 Months Results * X-ray toe left 2nd digit [...] 2:56 PM Authorizing ProviderResult TypeResult StatusSumary Schmid MDCHOCTAW MEMORIAL [facility] DIAGNOSTIC IMAGING ORDERABLESFinal Result * X-ray foot left minimum 3 views [...] on 09/04/2025 4:43 PM Authorizing ProviderResult TypeResult StatusTalya Valencia RUG SIZER-CNPIMG DIAGNOSTIC IMAGING ORDERABLESFinal Result * Troponin I, High Sensitivity 1 Hour (08/09/2025 11:18 AM EDT)ComponentValueRef RangeTest MethodAnalysis TimePerformed AtPathologist SignatureTROPONIN I, HIGH SENSITIVITY3<21 ng/L1 11:57 AM EDTPROM[facility] Specimen (Source)Anatomical Location / LateralityCollection Method / Volume Collection TimeReceived TimeBloodVenous blood / UnknownVenipuncture / Unknown 08/09/2025 11:18 AM EDT1 11:25 AM EDT Narrative Authorizing ProviderResult TypeResult StatusTi MNOSON BLOOD ORDERABLESFinal ResultPerforming OrganizationAddressCity/State/ZIP CodePhone Number [facility] [address] [facility] [place] [address], * X-ray chest 1 view (08/09/2025 10:18 AM EDT)Anatomical RegionLaterality ModalityBody, ChestN/AComputed RadiographySpecimen (Source)Anatomical Location / LateralityCollection Method / VolumeCollection TimeReceived Time08/09/2025 10:19 AM EDT Narrative 08/09/2025 10:19 AM EDT XR CHEST 1 VW: 08/09/2025 10:14 AM Clinical: ??Dizziness. Hypertension. Upright portable chest is compared with 11/19/2024. Heart size is normal. No focal consolidation, large effusion, or pneumothorax. IMPRESSION: * ??No acute disease to limits of this single view exam. ?? * ??Recommend a two-view chest or CT if symptoms persist. Finalized by Yanick Oates MD on 08/09/2025 10:19 AM Procedure Note Yanick Oates MD - 08/09/2025 XR CHEST 1 VW: 08/09/2025 10:14 AM Clinical: Dizziness. Hypertension. Upright portable chest is compared with 11/19/2024. Heart size is normal. No focal consolidation, large effusion, or pneumothorax. IMPRESSION: * No acute disease to limits of this single view exam. * Recommend a two-view chest or CT if symptoms persist. Finalized by Yanick Oates MD on 08/09/2025 10:19 AM Authorizing ProviderResult TypeResult StatusTi REEVES DIAGNOSTIC IMAGING ORDERABLESFinal Result * Troponin I, High Sensitivity 0 Hour (08/09/2025 10:12 AM EDT)ComponentValueRef RangeTest MethodAnalysis TimePerformed AtPathologist SignatureTROPONIN I, HIGH SENSITIVITY3<21 ng/L1 10:40 AM [facility] Specimen (Source)Anatomical Location / LateralityCollection Method / Volume Collection TimeReceived TimeBloodVenous blood / UnknownVenipuncture / Unknown 08/09/2025 10:12 AM EDT1 10:13 AM EDT Narrative Authorizing ProviderResult TypeResult StatusTi MONSON BLOOD ORDERABLESFinal ResultPerforming OrganizationAddressCity/State/ZIP CodePhone Number [facility] [address] [facility] [place] [address], * Light Blue Top (08/09/2025 10:12 AM EDT) Only the most recent of2 resultswithin the time period is included. ComponentValueRef RangeTest MethodAnalysis TimePerformed AtPathologist Signature Extra TubeAuto Rwyyrksk22/24/2025 12:[address] [facility] (Source)Anatomical Location / LateralityCollection Method / VolumeCollection TimeReceived TimeBloodVenous blood / Pbnpxsd3808/09/2025 10:12 AM EDT1 10:15 AM EDT Narrative Authorizing ProviderResult TypeResult StatusTi MONSON BLOOD ORDERABLESFinal ResultPerforming OrganizationAddressCity/State/ZIP CodePhone Number [facility] [address] [place] [address], * CBC auto differential (08/09/2025 10:12 AM EDT) Only the most recent of2 resultswithin the time period is included. ComponentValueRef RangeTest MethodAnalysis TimePerformed AtPathologist Signature WBC7.64 - 11 x10E9/L1 10:21 AM [facility] RBC Count4.894.1 - 5.7 X10E12/L1 10:21 AM [facility]ITALHemoglobin14.313 - 17 g/dL08/09/2025 10:21 AM [facility]ITALHematocrit41.239 - 50 %08/09/2025 10:21 AM [facility]ITALMCV8480 - 100 fL08/09/2025 10:21 AM [facility]ITALMCH29.227 - 34 pg08/09/2025 10:21 AM [facility]ITALMCHC34.732 - 36 g/dL08/09/2025 10:21 AM [facility]ITALRDW14.111.5 - 15 %08/09/2025 10:21 AM [facility]ITALPlatelet Alcjr932128 - 450 X10E9/L1 10:21 AM EDT [facility]MPV7.97 - 12 fL08/09/2025 10:21 AM EDT [facility]Neutrophils %66.1%08/09/2025 10:21 AM EDT [facility] %28.6%08/09/2025 10:21 AM EDT [facility]Monocytes %3.6%08/09/2025 10:21 AM EDT [facility]ALEosinophils %0.7%08/09/2025 10:21 AM EDT [facility]Basophils %1.0%08/09/2025 10:21 AM EDT [facility]ITALNeutrophils Absolute (A)5.01.5 - 6.6 10*3/uL 08/09/2025 10:21 AM [facility]ymphocytes Absolute 2.21.0 - 3.5 10*3/uL08/09/2025 10:21 AM [facility] Monocytes Absolute0.30.0 - 0.9 10*3/uL08/09/2025 10:21 AM [facility]ALEosinophils Absolute0.10.0 - 0.4 10*3/uL08/09/2025 10:21 AM EDT [facility]ophils Absolute0.10.0 - 0.2 10*3/uL 08/09/2025 10:21 AM [facility]ITALDifferential Type AUTOMATED IMAEFMCYFAJO84/24/2025 10:21 AM [facility] Specimen (Source)Anatomical Location / LateralityCollection Method / Volume Collection TimeReceived TimeBloodVenous blood / UnknownVenipuncture / Unknown 08/09/2025 10:12 AM EDT1 10:13 AM EDT Narrative Authorizing ProviderResult TypeResult StatusTi Aguilar MDLAB BLOOD ORDERABLESFinal ResultPerforming OrganizationAddressCity/State/ZIP CodePhone Number [facility] [address] [place] [address], * (ABNORMAL) Basic Metabolic Panel (08/09/2025 10:12 AM EDT) Only the most recent of2 resultswithin the time period is included. ComponentValueRef RangeTest MethodAnalysis TimePerformed AtPathologist Signature WKKJIJ120794 - 146 mmol/L1 10:30 AM [facility]ITALPOTASSIUM4.13.5 - 5.0 mmol/L1 10:30 AM [facility]ITALCHLORIDE10098 - 109 mmol/L1 10:30 AM [facility]PITALCARBON PZBLDRS2857 - 32 mmol/L1 10:30 AM EDT [facility]ITALANION TQO340 - 15 mmol/L1 10:30 AM [facility]ITALBLOOD UREA RHKBVVBY208 - 23 mg/dL 08/09/2025 10:30 AM [facility]ITALCREATININE1.120.70 - 1.20 mg/dL08/09/2025 10:30 AM [facility]ITALComment: METHOD TRACEABLE TO IDMS SLHNLMJHHZKAADL050(H)65 - 99 mg/dL08/09/2025 10:30 AM [facility]PITALCALCIUM8.98.5 - 10.5 mg/dL08/09/2025 10:30 AM [facility]OSPITALEGFR Non-Race Jyczbdgar14>=60 ml/min/1.73sq.m1 10:30 AM [facility] Comment: eGFR not reported due to non-numeric value for Creatinine. Reported eGFR is based on the CKD-EPI 2020 equation that does not use a race coefficient. Specimen (Source)Anatomical Location / LateralityCollection Method / Volume Collection TimeReceived TimeBloodVenous blood / UnknownVenipuncture / Unknown 08/09/2025 10:12 AM EDT1 10:13 AM EDT Narrative Authorizing ProviderResult TypeResult StatusTi Aguilar MDLAB BLOOD ORDERABLESFinal ResultPerforming OrganizationAddressCity/State/ZIP CodePhone Number [facility] [address] [place] [address], [place] * ECG 12 lead (08/09/2025 10:04 AM EDT)Specimen (Source)Anatomical Location / LateralityCollection Method / VolumeCollection TimeReceived Time08/09/2025 10:04 AM EDT Narrative Authorizing ProviderResult TypeResult StatusTi [place] ORDERABLESFinal ResultPerforming OrganizationAddressCity/State/ZIP CodePhone Number [facility] * (ABNORMAL) Bedside Glucose *Place/Obtain serum glucose if >500 per glucometer. (08/09/2025 9:46 AM EDT)ComponentValueRef RangeTest MethodAnalysis Time Performed AtPathologist SignatureBedside Glucose (POC)328(H)65 - 99 mg/dL 08/09/2025 9:50 AM EDTPROMEDUC [facility] HILLCRESTpecimen (Source) Anatomical Location / LateralityCollection Method / VolumeCollection Time Received Timearterial/amffcgicd77/24/2025 9:46 AM EDT1 9:50 AM EDT Narrative Authorizing ProviderResult TypeResult StatusPOINT OF CARE TEST ORDERABLESFinal ResultPerforming OrganizationAddressCity/State/ZIP CodePhone Number [facility] [address] [facility] [place] [address], * CT abdomen and pelvis without contrast (07/01/2025 1:11 PM EDT)Anatomical RegionLateralityModalityBody, Abdomen, Body CoveraN/AComputed Tomography Specimen (Source)Anatomical Location / LateralityCollection Method / Volume Collection TimeReceived Time07/01/2025 1:12 PM EDT Narrative 07/01/2025 1:[address] ABDOMEN AND PELVIS WO CONT CLINICAL HISTORY: Abdominal pain radiating to left flank and groin COMPARISON: None. TECHNIQUE: * ??CT abdomen and pelvis was performed without the administration of intravenous contrast. Coronaland sagittal reformatted images were generated and reviewed. Automated exposure control was utilized. * ??All CT scans at this facility use dose modulation, iterative reconstruction, and/or weight based dosing when appropriate to reduce radiation dose to as low as reasonably achievable. FINDINGS: Visualized portions of lung parenchyma appear unremarkable. ??No pleural or pericardial effusions. No intra-abdominal free air or free fluid. Small fat-containing periumbilical hernia. The liver, gallbladder, spleen, pancreas, and adrenal glands appear unremarkable. No nephrolithiasis, hydronephrosis, or suspicious renal lesion. No pelvic free fluid. Nonenlarged prostate. The small bowel, terminal ileum, large bowel, and appendix appear unremarkable. No abdominal or pelvic lymphadenopathy. ??Nonaneurysmal abdominal aorta. ?? Diffuse idiopathic skeletal hyperostosis. No acute osseous abnormality. IMPRESSION: * ??No renal/ureteral calculi or evidence of urinary tract dilatation. * ??No acute abdominopelvic process. Approved by Resident: Dinesh Turner MD ??on 07/01/2025 1:12 PM Beau Ortiz MD have personally reviewed the image(s) and agree with and/or edited the report Finalized by Beau Evans MD on 07/01/2025 1:17 PM Procedure Note Beau Evans MD - 07/01/2025 CT ABDOMEN AND PELVIS WO CONT CLINICAL HISTORY: Abdominal pain radiating to left flank and groin COMPARISON: None. TECHNIQUE: * CT abdomen and pelvis was performed without the administration ofintravenous contrast. Coronal and sagittal reformatted images weregenerated and reviewed. Automated exposure control was utilized. * All CT scans at this facility use dose modulation, iterativereconstruction, and/or weight based dosing when appropriate to reduceradiation dose to as low as reasonably achievable. FINDINGS: Visualized portions of lung parenchyma appear unremarkable. No pleural or pericardial effusions. No intra-abdominal free air or free fluid. Small fat-containingperiumbilical hernia. The liver, gallbladder, spleen, pancreas, and adrenal glands appearunremarkable. No nephrolithiasis, hydronephrosis, or suspicious renal lesion. No pelvic free fluid. Nonenlarged prostate. The small bowel, terminal ileum, large bowel, and appendix appearunremarkable. No abdominal or pelvic lymphadenopathy. Nonaneurysmal abdominal aorta. Diffuse idiopathic skeletal hyperostosis. No acute osseous abnormality. IMPRESSION: * No renal/ureteral calculi or evidence of urinary tract dilatation. * No acute abdominopelvic process. Approved by Resident: Dinesh Turner MD on 07/01/2025 1:12PM Beau Ortiz MD have personally reviewed the image(s) and agreewith and/or edited the report Finalized by Beau Evans MD on 07/01/2025 1:17 PM Authorizing ProviderResult TypeResult Prema Torres MDIMG CT ORDERABLES Final Result * (ABNORMAL) POCT Nursing Urine Macroscopic UA (07/01/2025 1:08 PM EDT)Component ValueRef RangeTest MethodAnalysis TimePerformed AtPathologist [facility] Urine Specific Gravity1.0251.010, 1.015, 1.020, 1.8688807/01/2025 1:11 PM EDT [facility] Urine Leukocyte EsteraseNegative Zlopnjze30/15/2025 1:11 PM [facility] Urine ZkkhtemGzizujknXwoehhak61/15/2025 1:11 PM [facility] Urine pH5.05.0, 6.0, 6.5, 7.0, 7.5, 8.0, 8.5, 5. 1:11 PM [facility] Urine Ixykshv79 mg/dL(A)Negative 07/01/2025 1:11 PM [facility] Urine Glucose >=1000 mg/dL(A)Faoqyebg40/15/2025 1:11 PM [facility] Urine FvdeqliQcogmmkpUsqjmsei10/15/2025 1:11 [facility] Urine Urobilinogen0.2 E.U./dL07/01/2025 1:11 PM [facility] Urine BilirubinNegativeNegative 07/01/2025 1:11 PM [facility] Urine Blood/HGB Trace(A)Mavrbfay84/15/2025 1:11 PM [facility] Specimen (Source)Anatomical Location / LateralityCollection Method / Volume Collection TimeReceived VlskDzybh87/15/2025 1:08 PM EDT07/01/2025 1:11 PM EDT Narrative Authorizing ProviderResult TypeResult Prema Trores MDPOINT OF CARE TEST ORDERABLESFinal ResultPerforming OrganizationAddressCity/State/ZIP CodePhone Number [address] [place] [address], [place] * Extra Urine [place] (07/01/2025 1:05 PM EDT)ComponentValueRef RangeTest Method Analysis TimePerformed AtPathologist SignatureExtra TubeAuto Resulted 07/01/2025 3:01 PM [facility] (Source) Anatomical Location / LateralityCollection Method / VolumeCollection Time Received TimeUrineUrine specimen collection, clean catch / Liovcnk1107/01/2025 1:05 PM EDT07/01/2025 1:40 PM EDT Narrative Authorizing ProviderResult TypeResult StatusJairo BALL ORDERABLES Final ResultPerforming OrganizationAddressCity/State/ZIP CodePhone Number [address] [place] [address], [place] * Extra Urine Culture (07/01/2025 1:05 PM EDT)ComponentValueRef RangeTest Method Analysis TimePerformed AtPathologist SignatureExtra TubeAuto Resulted 07/01/2025 3:01 PM EDTPMemorial Hospital (Source) Anatomical Location / LateralityCollection Method / VolumeCollection Time Received TimeUrineUrine specimen collection, clean catch / Yhvqnpv0207/01/2025 1:05 PM EDT07/01/2025 1:40 PM EDT Narrative Authorizing ProviderResult TypeResult StatusJairo BALL ORDERABLES Final ResultPerforming OrganizationAddressty/State/ZIP CodePhone Number [address] [place] [address], [place] * Extra Urine (07/01/2025 1:05 PM EDT)ComponentValueRef RangeTest MethodAnalysis TimePerformed AtPathologist SignatureExtra TubeAuto Qrylfiuc20/15/2025 3:01 PM EDTPMemorial Hospital (Source)Anatomical Location / LateralityCollection Method / VolumeCollection TimeReceived TimeUrineUrine specimen collection, clean catch / Aywckli0007/01/2025 1:05 PM EDT07/01/2025 1:40 PM EDT Narrative Authorizing ProviderResult TypeResult StatusJairo Torres MDURINE ORDERABLES Final ResultPerforming OrganizationAddressCity/State/ZIP CodePhone Number [facility] [address] [place] [address], [place] from Last 3 Months Insurance Advance Directives * Full Code (Latest Code Status on File) Date ActivatedDate InactivatedComments11/19/2024 9:32 PM2 5:22 PM * Full Code Date ActivatedDate InactivatedComments05/29/2023 9:15 PM05/31/2023 5:46 PM Care Teams Team MemberRelationshipSpecialtyStart DateEnd Date Tong Roman PA-C PCP - GeneralPhysician Nxsnabefw12/2/25
--- OUTSIDE RECORDS SUMMARY | 2025-09-18 14:03 | XMS_ITS | Encounter Summary ---
Author Organization [employer] tem Address [id number] [address] [place] [address] Care Team Providers Care Pediatric Assistant Name Role Phone Unavailable Primary Care Provider Unavailabl e Encounter Details DateTypeDepartmentCare Team (Latest Contact Info)Tczpdmbgtug72/19/2025Travel Social History Tobacco UseTypesPacks/DayYears UsedDateSmoking Tobacco: NeverSmokeless Tobacco: NeverAlcohol UseStandard Drinks/WeekCommentsNo0 (1 standard drink = 0.6 oz pure alcohol)[facility] UtilitiesAnswerDate RecordedIn the past 12 months has the electric, gas, oil, or water company threatened to shut off services in your home?No 11/20/2024Overall Financial Resource Strain (CARDIA)AnswerDate RecordedHow hard is it for you to pay for the very basics like food, housing, medical care, and heating?Not hard at all4PHQ-2AnswerDate RecordedTotal Hsldt502 PRAPARE - TransportationAnswerDate RecordedIn the past 12 [...] a part of a household?No5ChildcareAnswerDate RecordedChildcareUnknown 03/28/2019EmploymentAnswerDate PjuvydrrWzgxwteximErwrgvs04/12/2019Hunger ScreeningAnswerDate RecordedWithin the past 12 months we worried whether our food would run out before we got money to buy more.Never True09/04/2025Within the past 12 months the food we bought just didn't last and we didn't have money to get more.Never True09/04/2025Purpose - LifeAnswerDate RecordedPurpose and direction in ylbcLcvpgpn78/11/2021ex and Gender InformationValueDate Recorded Sex Assigned at YufbxXsgk11/11/2024 10:05 AM ESTLegal UwaBpnj8405/22/2015 11:27 AM EDTGender NqsajrfcNjou87/11/2024 10:05 AM ESTSexual OrientationStraight 10/27/2023 10:05 AM ESTdocumented as of this encounter Plan of Treatment DateTypeDepartmentCare Team (Latest Contact Info)Uxujqtphidm23/10/2025 3:00 PM ESTOffice [facility] [address] [place] [address] Talya Valencia, BOAT CREW DECK HAND-COMBATANT DIVER OFFICER [address] [place] [address] Armida Hahn, BOAT CREW DECK HAND-COMBATANT DIVER OFFICER [address] [place] [address] documented as of this encounter Goals GoalPatient Goal TypeAssociated ProblemsRecent ProgressPatient-Stated?Author safe discharge to home Bozena Thomson, CHANTAL Note: Evaluation of progress towards goal: safe transition from hospital to home with and family support. documented as of this encounter Visit Diagnoses Not on filedocumented in this encounter Additional Health Concerns AssessmentNoted TimePHQ-9 Depression Total Score: 4:47 PM EST documented as of this encounter
--- OUTSIDE RECORDS SUMMARY | 2025-09-18 14:04 | XMS_ITS | Encounter Summary ---
Author Organization [employer] tem Address [facility] [id number] [address] [place] [address] Care Team Providers Care Tunnel Elastic Operator Zigzag Name Role Phone Tong Roman PA-C Primary Care Provider [phone] Encounter Details DateTypeDepartmentCare Team (Latest Contact Info)Hoezkvpcqeo15/02/2025Travel Social History Tobacco UseTypesPacks/DayYears UsedDateSmoking Tobacco: NeverSmokeless Tobacco: NeverAlcohol UseStandard Drinks/WeekCommentsNo0 (1 standard drink = 0.6 oz pure alcohol)[facility] UtilitiesAnswerDate RecordedIn the past 12 months has the electric, gas, oil, or water [employer] threatened to shut off services in your home?No 11/20/2024Overall Financial Resource Strain (CARDIA)AnswerDate RecordedHow hard is it for you to pay for the very basics like food, housing, medical care, and heating?Not hard at all4PHQ-2AnswerDate RecordedTotal Thldh783 PRAPARE - TransportationAnswerDate RecordedIn the past 12 [...] a part of a household?No11/20/2024hildcareAnswerDate RecordedChildcareUnknown 03/28/2019EmploymentAnswerDate XprewaxkFoiunhjjqgRbqsdma32/12/2019Hunger ScreeningAnswerDate RecordedWithin the past 12 months we worried whether our food would run out before we got money to buy more.Never True09/17/2025Within the past 12 months the food we bought just didn't last and we didn't have money to get more.Never True09/17/2025Purpose - LifeAnswerDate RecordedPurpose and direction in ffglUtxaekj80/11/2021ex and Gender InformationValueDate Recorded Sex Assigned at ZroeiXrrq62/11/2024 10:05 AM ESTLegal LxzBvpg2105/22/2015 11:27 AM EDTGender UqunbnspMgld28/11/2024 10:05 AM ESTSexual OrientationStraight 10/27/2023 10:05 AM ESTdocumented as of this encounter Plan of Treatment DateTypeDepartmentCare Team (Latest Contact Info)Obrktefbjmf83/10/2025 3:00 PM ESTOffice Visit [facility] [address] [place] [address] Talya Valencia, OUTBOARD MOTOR MECHANIC-MOTION DESIGNER [address] [place] [address] Armida Hahn, OUTBOARD MOTOR MECHANIC-MOTION DESIGNER [address] [place] [address] documented as of this encounter Goals GoalPatient [...] Date Tong Roman PA-C PCP - GeneralPhysician Gempbnhmc28/2/25documented as of this encounter
--- OUTSIDE RECORDS SUMMARY | 2025-09-18 14:04 | XMS_ITS | Encounter Summary ---
Author Organization [employer] tem Address [facility] [id number] [address] [place] [address] Care Team Providers Care Can Capper Name Role Phone Unavailable Primary Care Provider Unavailabl e Encounter Details DateTypeDepartmentCare Team (Latest Contact Info)Lythatwmpfy73/26/2025Travel Social History Tobacco UseTypesPacks/DayYears UsedDateSmoking Tobacco: NeverSmokeless Tobacco: NeverAlcohol UseStandard Drinks/WeekCommentsNo0 (1 standard drink = 0.6 oz pure alcohol)[facility] UtilitiesAnswerDate RecordedIn the past 12 months has the electric, gas, oil, or water company threatened to shut off services in your home?No 11/20/2024Overall Financial Resource Strain (CARDIA)AnswerDate RecordedHow hard is it for you to pay for the very basics like food, housing, medical care, and heating?Not hard at all4PHQ-2AnswerDate RecordedTotal Nipgc988 PRAPARE - TransportationAnswerDate RecordedIn the past 12 [...] a part of a household?No5ChildcareAnswerDate RecordedChildcareUnknown 03/28/2019EmploymentAnswerDate BwefrzsaZbewuzxetqXdinxzj51/12/2019Hunger ScreeningAnswerDate RecordedWithin the past 12 months we worried whether our food would run out before we got money to buy more.Never True09/04/2025Within the past 12 months the food we bought just didn't last and we didn't have money to get more.Never True09/04/2025Purpose - LifeAnswerDate RecordedPurpose and direction in pvhsZznydwi02/11/2021ex and Gender InformationValueDate Recorded Sex Assigned at TtomjRjiv08/11/2024 10:05 AM ESTLegal RmpTpry4005/22/2015 11:27 AM EDTGender XmlvxlngGffy29/11/2024 10:05 AM ESTSexual OrientationStraight 10/27/2023 10:05 AM ESTdocumented as of this encounter Plan of Treatment DateTypeDepartmentCare Team (Latest Contact Info)Kkkpxyjbilm25/10/2025 3:00 PM ESTOffice Visit [facility] [address] [place] [address] Talya Valencia, CAFETERIA ASSOCIATE-CIVIL CAD DESIGNER [address] [place] [address] Armida Hahn, CAFETERIA ASSOCIATE-CIVIL CAD DESIGNER [address] [place] [address] documented as of this encounter Goals GoalPatient [...]
== END 2025-09-18 14:00 | disposition home or self-care (01) ==
LOC: EC 14:00 → WC 14:07
PROVIDERS: Visit Provider Physician Assistant
DX: E11.621 Type 2 diabetes mellitus with foot ulcer (principal); L97.529 Non-pressure chronic ulcer of other part of left foot with unspecified severity
CPT/HCPCS: G0463

== ENCOUNTER 2025-09-25 13:47 | Outpatient (OUT) | payer BC, SELFPAY | END 2025-09-25 13:48 | disposition home or self-care (01) | LOC: WC 13:47 | PROVIDERS: Visit Provider Physician Assistant | DX: E11.621 Type 2 diabetes mellitus with foot ulcer (principal); L97.529 Non-pressure chronic ulcer of other part of left foot with unspecified severity | CPT/HCPCS: G0463 ==